=== PATIENT | female | born 1995 | race Caucasian/White ===

== ENCOUNTER 2016-11-29 00:12 | Emergency (ER) | END 2016-11-29 04:33 | disposition home or self-care (01) | DX: S62.606A Fracture of unspecified phalanx of right little finger, initial encounter for closed fracture (principal); S60.221A Contusion of right hand, initial encounter; W22.8XXA Striking against or struck by other objects, initial encounter; Y92.9 Unspecified place or not applicable | CPT/HCPCS: 29130; 73130; Z7502 ==